=== PATIENT | female | born 2000 | race Caucasian/White ===

== ENCOUNTER 2019-02-14 15:26 | Emergency (ER) | payer BC, OTHER ==
[~2019-02-14] VITALS: Ht 162.6 cm; Wt 109.0 kg
[~2019-02-14 15:26] MED LIST: ACET500C5 PO; CEPH-443 PO; PREN-93 PO
[2019-02-14 15:32] VITALS: BP 146/64; PULSE 94; RESP 18; Ht 162.6 cm; Wt 109.0 kg
== END 2019-02-14 17:42 | disposition home or self-care (01) ==
LOC: E/R 15:26
DX: O20.9 Hemorrhage in early pregnancy, unspecified (principal); Z3A.08 8 weeks gestation of pregnancy
CPT/HCPCS: 76801; 76817; Z7502